=== PATIENT | female | born 1960 | race African-American/Black ===

== ENCOUNTER 2024-09-09 12:20 | Inpatient (IN) | payer OTHER ==
[~2024-09-09] VITALS: Ht 162.6 cm; Wt 68.5 kg
[2024-09-09 12:29] VITALS: O2SAT 96
[2024-09-09] MEDS: PIPERACILLIN/TAZO 3.375G/50ML 50 ML IV ONE (13:16)
[2024-09-09] MEDS: ACETAMINOPHEN 1000MG/100ML 100 ML IV ONE (13:16)
[2024-09-09 13:51] LABS: HEMATOCRIT. 31.8 % (36.0-48.0); HEMOGLOBIN. 10.2 g/dL (12.0-16.0); MEAN CORPUSCULAR HEMOGLOBIN 27.2 pg (28.0-32.0); MEAN CORPUSCULAR VOLUME 84.9 fL (81.0-99.0); MEAN PLATELET VOLUME 8.6 fl (7.4-10.4); PLATELET 215 x1000/uL (130-400); RED BLOOD CELL COUNT 3.74 mill/uL (4.2-5.4); RED CELL DISTRIBUTION WIDTH 17.6 % (11.6-14.6); WHITE BLOOD COUNT 7.4 x1000/uL (4.5-11.0)
[2024-09-09 13:58] LABS: CHLORIDE 104 mEq/L (98-107); POTASSIUM 4.2 mEq/L (3.5-5.1); SODIUM 139 mEq/L (136-145)
[2024-09-09 13:59] LABS: CARBON DIOXIDE 27 mEq/L (21-32)
[2024-09-09 14:00] LABS: CALCIUM 9.3 mg/dL (8.7-10.4); INR 0.9; PROTHROMBIN TIME 10.3 sec (9.6-11.0)
[2024-09-09] MEDS: SODIUM CHLORIDE 0.9% 250 ML IV ONE (14:00)
[2024-09-09 14:04] LABS: CREATININE 3.9 mg/dL (0.6-1.0); GLUCOSE 108 mg/dL (70-105); UREA NITROGEN BLOOD 13 mg/dL (9-23)
[2024-09-09 14:05] LABS: TROPONIN I HIGH SENSITIVITY 10 ng/L (3.0-34)
[2024-09-09 14:19] LABS: DIFFERENTIAL COMMENT 1
[2024-09-09 14:41] LABS: PLATELET ESTIMATE NORMAL
[2024-09-09 14:42] LABS: ANISOCYTOSIS 2+
[2024-09-09] MEDS: VANCOMYCIN 1G PREMIX 200 ML IV ONE (14:54)
[2024-09-09 17:26] LABS: CLARITY URINE CLEAR (CLEAR); COLOR URINE YELLOW (YELLOW); GLUCOSE URINE NEGATIVE (NEGATIVE); KETONES URINE NEGATIVE (NEGATIVE); LEUKOCYTE ESTERASE URINE TRACE (NEGATIVE); NITRITE URINE NEGATIVE (NEGATIVE); OCCULT BLOOD URINE NEGATIVE (NEGATIVE); PH URINE >=9.0 (4.5-8.0); PROTEIN URINE 2+ (NEGATIVE); SPECIFIC GRAVITY URINE 1.014 (1.005-1.030); UROBILINOGEN URINE 0.2 E.U./dL (0.2-1.0)
[2024-09-09 17:46] LABS: BACTERIA URINE TRACE; RBC URINE 0-2 /hpf (0-2); SQUAMOUS EPITHELIAL CELL URINE 2+ /lpf (RARE/1+)
[2024-09-09 18:29] VITALS: BP 94/64; PULSE 109; RESP 17; TEMP 36.6696; O2SAT 99
[2024-09-09 20:00] VITALS: BP 136/82; PULSE 95; RESP 16; TEMP 36.28068; O2SAT 96
[2024-09-09] MEDS ORDERED: CINA30 MT (21:32)
[2024-09-09] MEDS ORDERED: LISI10TA26 MT (21:32)
[2024-09-09] MEDS ORDERED: SEVE800T8 MT (21:32)
[2024-09-09] MEDS ORDERED: CELL2 MT (21:32)
[2024-09-09] MEDS ORDERED: HYDR200T80 MT (21:32)
[2024-09-09 23:30] VITALS: BP 119/61; PULSE 106; RESP 16; TEMP 36.8072
[2024-09-10] VITALS: BP 119/61; PULSE 106; RESP 16; TEMP 36.78072; O2SAT 94
[2024-09-10] MEDS: PIPERACILLIN/TAZO 3.375G/50ML 50 ML IV SCH (00:05)
[2024-09-10 04:00] VITALS: BP 109/47; PULSE 93; RESP 16; TEMP 36.44736; O2SAT 96
[2024-09-10] MEDS: SEVELAMER CARBONATE 800 MG TABLET PO SCH (07:15)
[2024-09-10 08:55] VITALS: BP 100/49; PULSE 91; RESP 16; TEMP 36.9474; O2SAT 100
[2024-09-10] MEDS: CINACALCET HCL 30MG TABLET PO SCH (09:22)
[2024-09-10] MEDS: MYCOPHENOLATE MOFETIL 250MG CAPSULE PO SCH (09:22)
[2024-09-10 12:35] VITALS: BP 128/48; PULSE 94; RESP 18; TEMP 36.3918; O2SAT 100
[2024-09-10 16:00] VITALS: BP 118/67; PULSE 96; RESP 18; TEMP 36.6696; O2SAT 98
[2024-09-10 20:00] VITALS: BP 126/72; PULSE 89; RESP 23; TEMP 36.16956; O2SAT 96
[2024-09-10] MEDS ORDERED: PIPERACILLIN/TAZO 3.375G/50ML 50 ML IV SCH (22:00)
[2024-09-11] VITALS (15 sets, daily range): BP systolic 112–138; BP diastolic 66–87; PULSE 84–145; RESP 13–25; TEMP 36.16956–38.00304; O2SAT 94–100
[2024-09-11] MEDS ORDERED: LISINOPRIL 10MG TABLET PO SCH (09:00)
[2024-09-11 10:04] LABS: BASOPHILS % 0.4 % (0.0-2.0); EOSINOPHILS % 0.8 % (0.0-5.0); HEMATOCRIT. 31.6 % (36.0-48.0); HEMOGLOBIN. 10.1 g/dL (12.0-16.0); LYMPHOCYTES % 8.6 % (20.0-50.0); MEAN CORPUSCULAR HEMOGLOBIN 27.2 pg (28.0-32.0); MEAN CORPUSCULAR VOLUME 84.8 fL (81.0-99.0); MEAN PLATELET VOLUME 8.8 fl (7.4-10.4); MONOCYTES % 6.1 % (2.0-8.0); NEUTROPHILS % 84.1 % (40.0-76.0); PLATELET 241 x1000/uL (130-400); RED BLOOD CELL COUNT 3.73 mill/uL (4.2-5.4); RED CELL DISTRIBUTION WIDTH 17.9 % (11.6-14.6); WHITE BLOOD COUNT 12.8 x1000/uL (4.5-11.0)
[2024-09-11 10:05] LABS: CARBON DIOXIDE 25 mEq/L (21-32); CHLORIDE 103 mEq/L (98-107); POTASSIUM 4.8 mEq/L (3.5-5.1); SODIUM 137 mEq/L (136-145)
[2024-09-11 10:06] LABS: CALCIUM 9.5 mg/dL (8.7-10.4)
[2024-09-11 10:11] LABS: GLUCOSE 99 mg/dL (70-105); UREA NITROGEN BLOOD 31 mg/dL (9-23)
[2024-09-11 10:13] LABS: PHOSPHORUS 2.8 mg/dL (2.5-4.9)
[2024-09-11 10:51] LABS: CREATININE 7.6 mg/dL (0.6-1.0)
[2024-09-11] MEDS: ACETAMINOPHEN 325MG TABLET PO PRN (17:47)
[2024-09-12] VITALS: BP 109/65; PULSE 114; RESP 18; TEMP 36.9474; O2SAT 94
[2024-09-12 04:00] VITALS: BP 103/88; PULSE 90; RESP 24; TEMP 36.83628; O2SAT 94
[2024-09-12 08:00] VITALS: BP 132/77; PULSE 110; RESP 25; TEMP 36.78072; O2SAT 99
[2024-09-12 12:00] VITALS: BP 138/70; PULSE 91; RESP 23; TEMP 36.6696; TEMP 36.66960; O2SAT 99
[2024-09-12 12:58] LABS: HEMATOCRIT. 27.6 % (36.0-48.0); HEMOGLOBIN. 8.9 g/dL (12.0-16.0); MEAN CORPUSCULAR HEMOGLOBIN 27.2 pg (28.0-32.0); MEAN CORPUSCULAR HGB CONC 32.1 g/dL (31.0-37.0); MEAN CORPUSCULAR VOLUME 84.9 fL (81.0-99.0); MEAN PLATELET VOLUME 8.9 fl (7.4-10.4); PLATELET 193 x1000/uL (130-400); RED BLOOD CELL COUNT 3.25 mill/uL (4.2-5.4); RED CELL DISTRIBUTION WIDTH 17.3 % (11.6-14.6); WHITE BLOOD COUNT 20.4 x1000/uL (4.5-11.0)
[2024-09-12 13:00] LABS: CHLORIDE 98 mEq/L (98-107); POTASSIUM 4.3 mEq/L (3.5-5.1); SODIUM 137 mEq/L (136-145)
[2024-09-12 13:01] LABS: CALCIUM 8.8 mg/dL (8.7-10.4); CARBON DIOXIDE 28 mEq/L (21-32)
[2024-09-12 13:02] LABS: DIFFERENTIAL COMMENT 1
[2024-09-12 13:06] LABS: GLUCOSE 205 mg/dL (70-105); UREA NITROGEN BLOOD 28 mg/dL (9-23)
[2024-09-12 13:08] LABS: PHOSPHORUS 2.7 mg/dL (2.5-4.9)
[2024-09-12 13:15] LABS: CREATININE 7.5 mg/dL (0.6-1.0)
[2024-09-12 17:06] LABS: PLATELET ESTIMATE NORMAL
[2024-09-12 17:07] LABS: ANISOCYTOSIS 1+
== END 2024-09-12 14:45 | disposition left against medical advice (07) | DRG 871 ==
LOC: ER 12:20 → 5WST 16:26 → EDBEDREQ 16:31 → EDBEDREQTM 16:31 → 3WST 09-10 14:28
PROVIDERS: ADMIT Internal Medicine; ATTEND Internal Medicine
PROC: 5A1D70Z Performance of Urinary Filtration, Intermittent, Less than 6 Hours Per Day (ICD-10-PCS; principal; 2024-09-11)
DX: A41.9 Sepsis, unspecified organism (principal); N18.6 End stage renal disease; I12.0 Hypertensive chronic kidney disease with stage 5 chronic kidney disease or end stage renal disease; N39.0 Urinary tract infection, site not specified; D64.9 Anemia, unspecified; Z20.822 Contact with and (suspected) exposure to COVID-19; R65.20 Severe sepsis without septic shock; E78.5 Hyperlipidemia, unspecified; M32.8 Other forms of systemic lupus erythematosus; I25.10 Atherosclerotic heart disease of native coronary artery without angina pectoris; Z53.29 Procedure and treatment not carried out because of patient's decision for other reasons; Z82.49 Family history of ischemic heart disease and other diseases of the circulatory system; Z99.2 Dependence on renal dialysis; Z91.041 Radiographic dye allergy status; Z88.2 Allergy status to sulfonamides
CPT/HCPCS: 36415; 71045; 71250; 74176; 80048; 80202; 81003; 83605; 83735; 83880; 84100; 84145; 84484; 85025; 86705; 86709; 87340; 87426; 87804; 90935; 93005; 99291; J2543; J3370; J7050; J7517; J0131

== ENCOUNTER 2024-09-23 12:43 | Inpatient (IN) | payer OTHER, MEDICARE ==
[~2024-09-23] VITALS: Ht 167.6 cm; Wt 67.3 kg
[~2024-09-23 12:43] MED LIST: CELL2 MT; CINA30 MT; HYDR200T80 MT; LISI10TA26 MT; SEVE800T8 MT
[2024-09-23] MEDS ORDERED: CEFEPIME 1GM IN DEXT 5% 50ML IV ONE (13:00)
[2024-09-23] MEDS: SODIUM CHLORIDE 0.9% 1,000 ML IV ONE (13:23)
[2024-09-23] MEDS: ACETAMINOPHEN 325MG TABLET PO STA (13:27)
[2024-09-23 13:29] LABS: HEMATOCRIT. 30.5 % (36.0-48.0); HEMOGLOBIN. 9.5 g/dL (12.0-16.0); MEAN CORPUSCULAR HEMOGLOBIN 27.1 pg (28.0-32.0); MEAN CORPUSCULAR HGB CONC 31.3 g/dL (31.0-37.0); MEAN CORPUSCULAR VOLUME 86.6 fL (81.0-99.0); PLATELET 246 x1000/uL (130-400); RED BLOOD CELL COUNT 3.52 mill/uL (4.2-5.4); RED CELL DISTRIBUTION WIDTH 19.3 % (11.6-14.6); WHITE BLOOD COUNT 13.9 x1000/uL (4.5-11.0)
[2024-09-23] MEDS: CEFEPIME 1GM PREMIX 50ML IV NR (13:31)
[2024-09-23 13:33] LABS: DIFFERENTIAL COMMENT 1
[2024-09-23 13:34] LABS: CARBON DIOXIDE 31 mEq/L (21-32); CHLORIDE 102 mEq/L (98-107); POTASSIUM 3.4 mEq/L (3.5-5.1); SODIUM 139 mEq/L (136-145)
[2024-09-23 13:35] LABS: CALCIUM 9.4 mg/dL (8.7-10.4)
[2024-09-23 13:39] LABS: INR 0.9; PROTHROMBIN TIME 10.4 sec (9.6-11.0)
[2024-09-23 13:40] LABS: GLUCOSE 109 mg/dL (70-105); UREA NITROGEN BLOOD 10 mg/dL (9-23)
[2024-09-23 13:42] LABS: ALANINE AMINOTRANSFERASE < 7 IU/L (10-49); ALBUMIN 3.8 g/dL (3.2-4.8); ASPARTATE AMINOTRANSFERASE 19 IU/L (<34); BILIRUBIN DIRECT 0.3 mg/dL (<=3.0); BILIRUBIN TOTAL 0.8 mg/dL (0.1-1.0); PROTEIN TOTAL 7.4 g/dL (6.0-8.3)
[2024-09-23] MEDS: VANCOMYCIN 1G PREMIX 200 ML IV ONE (13:45)
[2024-09-23 13:53] LABS: ANISOCYTOSIS 2+; PLATELET ESTIMATE NORMAL
[2024-09-23 14:06] LABS: CREATININE 3.4 mg/dL (0.6-1.0)
[2024-09-23 15:02] LABS: CLARITY URINE CLEAR (CLEAR); COLOR URINE YELLOW (YELLOW); GLUCOSE URINE NEGATIVE (NEGATIVE); KETONES URINE NEGATIVE (NEGATIVE); LEUKOCYTE ESTERASE URINE NEGATIVE (NEGATIVE); NITRITE URINE NEGATIVE (NEGATIVE); OCCULT BLOOD URINE NEGATIVE (NEGATIVE); PH URINE >=9.0 (4.5-8.0); PROTEIN URINE 2+ (NEGATIVE); SPECIFIC GRAVITY URINE 1.014 (1.005-1.030)
[2024-09-23 15:17] LABS: SQUAMOUS EPITHELIAL CELL URINE FEW /lpf (RARE/1+)
[2024-09-23 15:18] LABS: RBC URINE NONE SEEN /hpf (0-2); WBC URINE 0-2 /hpf (0-2)
[2024-09-23 15:19] LABS: BACTERIA URINE NONE SEEN
[2024-09-23] MEDS ORDERED: CLONIDINE 0.1MG TABLET PO PRN (17:15)
[2024-09-23] MEDS ORDERED: ONDANSETRON HCL 4MG/2ML INJ IV PRN (17:15)
[2024-09-23] MEDS ORDERED: GUAIFENESIN 200MG/10ML SUGAR FREE UDC PO PRN (17:15)
[2024-09-23] MEDS ORDERED: ACETAMINOPHEN 325MG TABLET PO PRN (17:15)
[2024-09-23] MEDS ORDERED: DOCUSATE SODIUM 100MG CAPSULE PO PRN (17:15)
[2024-09-23] MEDS ORDERED: IPRATROPIUM/ALBUTEROL 0.5-3(2.5)MG/3ML NEB HHN PRN (17:41)
[2024-09-23] MEDS ORDERED: PIPERACILLIN/TAZO 3.375G/50ML 50 ML IV NR (17:53)
[2024-09-23] MEDS ORDERED: DEXTROSE 50% WATER 50ML SYRINGE IV PRN (18:30)
[2024-09-23 20:50] VITALS: BP 143/74; PULSE 103; RESP 20; TEMP 36.55848; O2SAT 98
[2024-09-23] MEDS: INSULIN LISPRO 100 UNITS/ML SUBCUT SCH (21:00)
[2024-09-23 21:14] VITALS: BP 143/74; PULSE 103; RESP 20; TEMP 36.55848; O2SAT 98
[2024-09-23] MEDS: BLOOD SUGAR DIAGNOSTIC STRIP TEST SCH (21:50)
[2024-09-24] VITALS (9 sets, daily range): BP systolic 130–186; BP diastolic 63–96; PULSE 84–106; RESP 18–20; TEMP 36.3068–37.55856; O2SAT 92–100
[2024-09-24] MEDS: PANTOPRAZOLE 40MG DR TABLET PO SCH (07:01)
[2024-09-24 07:10] LABS: POTASSIUM 3.9 mEq/L (3.5-5.1)
[2024-09-24 07:11] LABS: CALCIUM 8.6 mg/dL (8.7-10.4)
[2024-09-24 07:16] LABS: HEMATOCRIT. 26.4 % (36.0-48.0); HEMOGLOBIN. 8.4 g/dL (12.0-16.0); MEAN CORPUSCULAR HEMOGLOBIN 27.6 pg (28.0-32.0); MEAN CORPUSCULAR HGB CONC 31.9 g/dL (31.0-37.0); MEAN CORPUSCULAR VOLUME 86.5 fL (81.0-99.0); MEAN PLATELET VOLUME 8.7 fl (7.4-10.4); PLATELET 200 x1000/uL (130-400); RED BLOOD CELL COUNT 3.05 mill/uL (4.2-5.4); RED CELL DISTRIBUTION WIDTH 19.1 % (11.6-14.6); WHITE BLOOD COUNT 8.6 x1000/uL (4.5-11.0)
[2024-09-24 07:19] LABS: THYROID STIMULATING HORMONE 0.98 uIU/mL (0.55-4.78)
[2024-09-24 07:20] LABS: DIFFERENTIAL COMMENT 1
[2024-09-24] MEDS: PIPERACILLIN/TAZO 3.375G/100ML 100 ML IV SCH (10:13)
[2024-09-24] MEDS: ENOXAPARIN 30MG/0.3ML SYR SUBCUT SCH (10:35)
[2024-09-24 12:29] LABS: LACTATE DEHYDROGENASE 231 IU/L (120-246)
[2024-09-24 12:46] LABS: HEPATITIS B SURFACE ANTIGEN NEGATIVE (Negative)
[2024-09-24 13:07] LABS: HEPATITIS A AB IGM NEGATIVE (Negative)
[2024-09-24 13:08] LABS: HEPATITIS B CORE AB IGM NEGATIVE (Negative); HEPATITIS C AB NON REACTIVE (Neg) (Negative)
[2024-09-24 13:25] LABS: CALCIUM 9.4 mg/dL (8.7-10.4)
[2024-09-24 13:26] LABS: BASOPHILS % 0.3 % (0.0-2.0); EOSINOPHILS % 0.4 % (0.0-5.0); HEMATOCRIT. 29.6 % (36.0-48.0); HEMOGLOBIN. 9.3 g/dL (12.0-16.0); MEAN CORPUSCULAR HEMOGLOBIN 27.1 pg (28.0-32.0); MEAN CORPUSCULAR HGB CONC 31.5 g/dL (31.0-37.0); MEAN PLATELET VOLUME 8.9 fl (7.4-10.4); MONOCYTES % 8.3 % (2.0-8.0); PLATELET 208 x1000/uL (130-400); RED BLOOD CELL COUNT 3.44 mill/uL (4.2-5.4); RED CELL DISTRIBUTION WIDTH 19.1 % (11.6-14.6)
[2024-09-24 13:40] LABS: CREATININE 5.6 mg/dL (0.6-1.0)
[2024-09-24 17:41] LABS: ANISOCYTOSIS 2+; PLATELET ESTIMATE NORMAL
[2024-09-24] MEDS ORDERED: ATORVASTATIN CALCIUM 40MG TABLET PO SCH (21:00)
[2024-09-24] MEDS ORDERED: EPOETIN ALFA 4000UNITS/ML VIAL SUBCUT SCH (21:00)
[2024-09-24 21:03] LABS: IRON 23 ug/dL (50-170)
[2024-09-24 21:04] LABS: PROTHROMBIN TIME 10.7 sec (9.6-11.0)
[2024-09-24 21:06] LABS: TOTAL IRON BINDING CAPACITY 180 ug/dl (250-425)
[2024-09-24 21:09] LABS: FERRITIN 1260 ng/mL (10-291); VITAMIN B12 SERUM 217 pg/mL (211-911)
[2024-09-24] MEDS: ATORVASTATIN CALCIUM 40MG TABLET PO SCH (21:30)
[2024-09-24] MEDS: CLOPIDOGREL 75MG TABLET PO SCH (21:30)
[2024-09-24] MEDS: ASPIRIN 81MG TABLET PO SCH (21:30)
[2024-09-25] VITALS (18 sets, daily range): BP systolic 116–167; BP diastolic 63–101; PULSE 77–151; RESP 17–20; TEMP 36.3918–37.05852; O2SAT 19–100
[2024-09-25 06:14] LABS: CHLORIDE 103 mEq/L (98-107); POTASSIUM 3.5 mEq/L (3.5-5.1); SODIUM 138 mEq/L (136-145)
[2024-09-25 06:15] LABS: CARBON DIOXIDE 27 mEq/L (21-32)
[2024-09-25 06:16] LABS: CALCIUM 8.9 mg/dL (8.7-10.4)
[2024-09-25 06:18] LABS: HEMATOCRIT. 27.2 % (36.0-48.0); HEMOGLOBIN. 8.6 g/dL (12.0-16.0); MEAN CORPUSCULAR HGB CONC 31.7 g/dL (31.0-37.0); MEAN CORPUSCULAR VOLUME 85.3 fL (81.0-99.0); MEAN PLATELET VOLUME 8.6 fl (7.4-10.4); PLATELET 201 x1000/uL (130-400); RED BLOOD CELL COUNT 3.19 mill/uL (4.2-5.4); RED CELL DISTRIBUTION WIDTH 18.8 % (11.6-14.6); WHITE BLOOD COUNT 5.6 x1000/uL (4.5-11.0)
[2024-09-25 06:20] LABS: GLUCOSE 83 mg/dL (70-105); UREA NITROGEN BLOOD 29 mg/dL (9-23)
[2024-09-25 06:24] LABS: PHOSPHORUS 3.6 mg/dL (2.5-4.9)
[2024-09-25 06:31] LABS: CREATININE 7.1 mg/dL (0.6-1.0)
[2024-09-25 06:32] LABS: DIFFERENTIAL COMMENT 1
[2024-09-25] MEDS: ACETAMINOPHEN 325MG TABLET PO PRN (17:31)
[2024-09-25] MEDS: VANCOMYCIN 500MG PREMIX 100 ML IV SCH (20:50)
[2024-09-26] VITALS (10 sets, daily range): BP systolic 101–150; BP diastolic 57–92; PULSE 81–106; RESP 18–22; TEMP 36.6696–37.61412; O2SAT 93–100
[2024-09-26 08:06] LABS: ANISOCYTOSIS 2+; PLATELET ESTIMATE NORMAL
[2024-09-26 09:09] LABS: COMPLEMENT C3 97 mg/dL (82-167); COMPLEMENT C4 29 mg/dL (12-38)
[2024-09-26] MEDS ORDERED: CEFEPIME 1GM IN DEXT 5% 50ML IV SCH (09:15)
[2024-09-26] MEDS: FAMOTIDINE 20MG TABLET PO SCH (09:25)
[2024-09-26] MEDS: CEFEPIME 1GM PREMIX 50ML IV SCH (11:55)
[2024-09-26 13:06] LABS: ANTI-DNA DOUBLE STRANDED QUANT 8 IU/mL (0-9)
[2024-09-26] MEDS ORDERED: EPOETIN ALFA-EPBX 4,000 UNIT/ML VIAL SUBCUT SCH (21:00)
== END 2024-09-26 17:02 | disposition short-term general hospital (02) | DRG 871 ==
LOC: ER 12:43 → EDBEDREQ 12:56 → 5WST 15:18 → EDBEDREQ 15:19 → 5EST 09-24 14:46
PROVIDERS: ADMIT Internal Medicine; ATTEND Internal Medicine
PROC: 5A1D70Z Performance of Urinary Filtration, Intermittent, Less than 6 Hours Per Day (ICD-10-PCS; principal; 2024-09-25)
DX: A41.9 Sepsis, unspecified organism (principal); I63.89 Other cerebral infarction; N18.6 End stage renal disease; T82.510A Breakdown (mechanical) of surgically created arteriovenous fistula, initial encounter; I12.0 Hypertensive chronic kidney disease with stage 5 chronic kidney disease or end stage renal disease; N39.0 Urinary tract infection, site not specified; R65.20 Severe sepsis without septic shock; D63.1 Anemia in chronic kidney disease; E87.6 Hypokalemia; I25.10 Atherosclerotic heart disease of native coronary artery without angina pectoris; E78.5 Hyperlipidemia, unspecified; N94.89 Other specified conditions associated with female genital organs and menstrual cycle; R29.701 NIHSS score 1; R59.0 Localized enlarged lymph nodes; M32.9 Systemic lupus erythematosus, unspecified; K75.9 Inflammatory liver disease, unspecified; K57.30 Diverticulosis of large intestine without perforation or abscess without bleeding; D25.9 Leiomyoma of uterus, unspecified; Z99.2 Dependence on renal dialysis; Z79.624 Long term (current) use of inhibitors of nucleotide synthesis; Z79.899 Other long term (current) drug therapy; Z86.73 Personal history of transient ischemic attack (TIA), and cerebral infarction without residual deficits; Z88.2 Allergy status to sulfonamides; Z82.49 Family history of ischemic heart disease and other diseases of the circulatory system; Y71.2 Prosthetic and other implants, materials and accessory cardiovascular devices associated with adverse incidents; Y92.89 Other specified places as the place of occurrence of the external cause
CPT/HCPCS: 36415; 70551; 71045; 80048; 80061; 80076; 80202; 81003; 82607; 82728; 82746; 82962; 83036; 83540; 83550; 83605; 83615; 83735; 84100; 84145; 84443; 85025; 86160; 86225; 86705; 86709; 87077; 87186; 87340; 87804; 90935; 92610; 93005; 93306; 93970; 97162; 97166; J0692; J1650; J2405; J2543; J3370; J7030